=== PATIENT | female | born 1950 | race Caucasian/White ===

== ENCOUNTER 2018-03-20 10:49 | Outpatient (CLI) | payer MEDICARE, BC ==
[2018-03-20 11:38] LABS: MEAN CORPUSCULAR HEMOGLOBIN 33.3 pg (27.0-31.0); MEAN CORPUSCULAR HGB CONC 34.9 g/dL (32.0-36.0); MEAN CORPUSCULAR VOLUME 95.4 fL (81.0-99.0); MEAN PLATELET VOLUME 7.9 fL (7.9-10.8); RED BLOOD COUNT 3.89 10^6/uL (4.20-5.40); RED CELL DISTRIBUTION WIDTH 12.2 % (12.0-15.0); WHITE BLOOD COUNT 5.8 x10^3/uL (4.8-10.8)
[2018-03-20 11:46] LABS: CALCIUM 9.3 mg/dL (8.5-10.3); CREATININE 0.7 mg/dL (0.4-1.0)
--- NOTE | 2018-03-20 16:13 | CT Report ---
Reason: SPINAL STENOSIS OF LUMBAR REGION W/O NEUROGENIC CL Procedure Date: 03/20/2018 Accession Number: [id number] / [id number] Procedure: CT - Lumbar Spine W/O CPT Code: FULL RESULT: EXAM: CT LUMBAR SPINE WITHOUT CONTRAST EXAM DATE: 03/20/2018 11:26 AM. CLINICAL HISTORY: Spinal stenosis of lumbar region without neurogenic CL. COMPARISONS: Lumbar spine w/out contrast 05/01/2016 5:10 PM. TECHNIQUE: Thin-section axial images were acquired of the lumbar spine from T12 to S1 without contrast. Post-processing: Coronal and sagittal reformats. Other: None. In accordance with CT protocol optimization, one or more of the following dose reduction techniques were utilized for this exam: automated exposure control, adjustment of mA and/or KV based on patient size, or use of iterative reconstructive technique. FINDINGS: Alignment: 5.9 degrees of levoscoliosis between T12-L1 and L4-L5. No anterolisthesis, no retrolisthesis is seen. Bones: Five [id number] lumbar vertebral bodies are present. No fractures or bone lesions. Disk Levels/Facets: T12-L1: Unremarkable. L1-L2: Unremarkable. L2-L3: Disk space height loss, marginal arthrosis is present. Prominent facets and ligamentum flavum. Moderate central stenosis. Moderate left foraminal stenosis. Right neural foramina is normal. L3-L4: Mild broad-based bulge, prominent facets. No stenosis. L4-L5: Mild broad-based bulge and prominent facets. No stenosis. L5-S1: Unremarkable. Musculature: Mild fatty atrophy of the multifidus musculature. Other: The visualized retroperitoneum is unremarkable. IMPRESSION: 1. 5.9 degrees levoscoliosis between T12-L1 and L4-L5. No listhesis. Mild fatty atrophy of the multifidus muscle is seen. 2. L2-L3 shows disk space height loss and marginal arthrosis. Moderate central stenosis. Moderate left foraminal stenosis. Right neural foramina is normal. 3. L3-L4 shows a mild broad-based bulge, no stenosis. 4. L4-L5 shows a mild broad-based bulge, no stenosis. 5. L5-S1 is normal. RADIA
== END 2018-03-20 10:50 | disposition home or self-care (01) ==
LOC: DI 10:49
PROVIDERS: ATTEND Neurological Surgery
DX: Z01.818 Encounter for other preprocedural examination (principal); M48.061 Spinal stenosis, lumbar region without neurogenic claudication; M41.85 Other forms of scoliosis, thoracolumbar region
CPT/HCPCS: 36415; 72131; 80048; 85027; 93005

== ENCOUNTER 2018-03-22 12:10 | Outpatient (CLI) | payer MEDICARE, BC ==
--- NOTE | 2018-03-23 11:58 | MRI Report ---
Reason: PREOPERATIVE TESTING, SPINAL STENOSIS Procedure Date: 03/22/2018 Accession Number: [id number] / [id number] Procedure: MRI - Lumbar Spine W/O CPT Code: FULL RESULT: EXAM: MRI LUMBAR SPINE WITHOUT CONTRAST EXAM DATE: 03/22/2018 01:06 PM. CLINICAL HISTORY: Spinal stenosis. COMPARISON: Lumbar spine CT from 03/20/2018 in the lumbar spine MRI from 05/01/2016. TECHNIQUE: Multiplanar, multisequence T1-weighted and fluid-sensitive sequences of the lumbar spine from T10 to S1 without contrast. Other: None. FINDINGS: Spinal Canal: The conus terminates at L1. The conus medullaris and cauda equina are unremarkable. Alignment: Retrolisthesis at L2-L3 is stable. Bone Marrow: Five [id number]-abe-plnalno lumbar vertebral bodies are confirmed on the CT. Type I and II Modic endplate changes are again noted at L2-L3, stable. Small chronic Schmorl's nodes at T12-L1 and L1-L2 are also stable. Disk Levels/Facets: T10-T11: On sagittal images, the spinal canal and foramina are patent. T11-T12: On sagittal images, the spinal canal and foramina are patent. T12-L1: On sagittal images, the spinal canal and foramina are patent. L1-L2: Bilateral foraminal protrusions are present resulting in moderate right and mild left foraminal narrowing. The spinal canal is patent. These findings are stable. L2-L3: Disk bulge with bilateral facet arthropathy and ligamentum flavum infolding are present. This results in moderate right and mild left foraminal narrowing. These findings are stable. L3-L4: A disk bulge with ligamentum flavum infolding result in mild spinal canal stenosis. There is mild bilateral foraminal narrowing. These findings are stable. L4-L5: A disk bulge with facet arthropathy and ligamentum flavum infolding result in mild spinal canal stenosis. There is mild bilateral foraminal narrowing. These findings are stable. L5-S1: Bilateral facet arthropathy is present without spinal canal or foraminal stenosis. Musculature: There is moderate diffuse fatty atrophy of the posterior paraspinal muscles. New mild edema is noted in the posterior paraspinal muscles bilaterally at L4 and L5, suspicious for muscular strain. No drainable fluid collection is seen. Other: The partially visualized retroperitoneum is unremarkable. IMPRESSION: 1. Normal conus medullaris and cauda equina. 2. Stable type I and type II Modic endplate changes at L2-L3. 3. Multilevel degenerative changes are again noted without worsening spinal canal or foraminal stenosis compared to the lumbar spine MRI from 05/01/2016. Comment: The following findings are so common in adults without low back pain that while we report their presence, they must be interpreted with caution and in the context of the clinical situation. (Reference Neliak et al, Spine 2001) Prevalence of findings in patients without low back pain: Disk degeneration (any evidence): 92% Disk desiccation/T2 signal loss: 83% Disk height loss: 56% Disk bulge: 64% Disk protrusion: 32% Annular tear/high intensity zone: 38% RADIA
== END 2018-03-22 12:11 | disposition home or self-care (01) ==
LOC: DI 12:10
PROVIDERS: ATTEND Neurological Surgery
DX: Z01.818 Encounter for other preprocedural examination (principal); M48.061 Spinal stenosis, lumbar region without neurogenic claudication; M51.26 Other intervertebral disc displacement, lumbar region
CPT/HCPCS: 72148

== ENCOUNTER 2018-07-23 07:17 | Emergency (ER) | payer MEDICARE, BC ==
[2018-07-23] MEDS ORDERED: SODIUM CHLORIDE 0.9% 1,000 ML IV ONE (07:46)
[2018-07-23] MEDS ORDERED: DEXAMETHASONE 10 MG/ML VIAL IVP STA (07:46)
[2018-07-23] MEDS ORDERED: PROCHLORPERAZINE 10 MG/2 ML VIAL IVP STA (07:46)
[2018-07-23] MEDS ORDERED: diphenhydrAMINE INJ 50 MG/ML VIAL IVP STA (07:46)
[2018-07-23] MEDS ORDERED: KETOROLAC 30 MG/ML VIAL IVP STA (07:46)
--- NOTE | 2018-07-23 07:49 | ED Physician Documentation ---
PD HPI HEADACHE - Stated complaint Stated Complaint: MIGRAINE - Chief complaint Chief Complaint: Neuro - History obtained from History obtained from: Patient, Family - History of Present Illness Timing - onset: How many days ago (2) Timing - onset during: Rest Timing - duration: Days (2) Timing - details: Gradual onset, Still present, Waxing and waning Location: Front, Right Quality: Throbbing Associated symptoms: Nausea. No: Fever, Stiff neck, Vomiting, Weakness, Numbness, Syncope, Seizure, Eye pain Improved by: Rest, Dark room, Quiet Worsened by: Light, Noise, Moving Contributing factors: No: Anticoagulated, Recent illness Similar symptoms before: Diagnosis (migraine) Recently seen: Not recently seen - Additional information Additional information: 67-year-old female with a history of migraines since adulthood has developed a headache 2 days ago this is been persistent she has had some nausea associated with that she has not had any vomiting. She has persistence of the headache and the pain is severe mostly in the right buddhism and she usually has been able to take care of these headaches with Imitrex which she has been out of. Review of Systems Constitutional: denies: Fever Eyes: denies: Decreased vision Ears: denies: Ear pain Nose: denies: Rhinorrhea / runny nose, Congestion Throat: denies: Sore throat Cardiac: denies: Chest pain / pressure, Palpitations Respiratory: denies: Dyspnea, Cough GI: reports: Nausea. denies: Abdominal Pain, Vomiting : denies: Dysuria, Frequency Skin: denies: Rash Musculoskeletal: denies: Neck pain, Back pain, Extremity pain Neurologic: reports: Headache. denies: Generalized weakness, Focal weakness, Numbness, Head injury, LOC PD PAST MEDICAL HISTORY - Past Medical History Neuro: Migraines Musculoskeletal: Chronic back pain - Past Surgical History Ortho: Spine surgery - Present Medications Home Medications: Ambulatory Orders Medication Instructions Recorded Confirmed Levothyroxine Sodium [Levoxyl] 88 mcg PO 07/23/18 Sumatriptan Succinate [Imitrex] 100 mg PO ONCE PRN #15 tablet 07/23/18 Tolterodine [Detrol LA] 2 mg PO ONCE 07/23/18 07/23/18 - Allergies Allergies/Adverse Reactions: Allergies Allergy/AdvReac Type Severity Reaction Status Date / Time No Known Drug Allergies Allergy Verified 07/23/18 07:24 - Social History Does the pt smoke?: No Smoking Status: Never smoker Does the pt drink ETOH?: No Does the pt have substance abuse?: No - Immunizations Immunizations are current?: Yes PD ED PE NORMAL - Vitals Vital signs reviewed: Yes (hypertensive) - General General: Alert and oriented X 3, Well developed/nourished, Other (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 ) - HEENT HEENT: Atraumatic, PERRL, EOMI, Ears normal, Moist mucous membranes, Pharynx benign - Neck Neck: Supple, no meningeal sign, No bony TTP, Other (There is mild tenderness at the insertion of the trapezius to the occiput bilaterally ) - Cardiac Cardiac: RRR, No murmur - Respiratory Respiratory: No respiratory distress, Clear bilaterally - Abdomen Abdomen: Soft, Non tender - Back Back: No CVA TTP, No spinal TTP - Derm Derm: Normal color, Warm and dry, No rash - Extremities Extremities: No deformity, No edema - Neuro Neuro: Alert and oriented X 3, 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, No motor deficit, No sensory deficit, Normal speech Eye Opening: Spontaneous Motor: Obeys Commands Verbal: Oriented GCS Score: 15 - Psych Psych: Normal mood Results - Vitals Vitals: Vital Signs - 24 hr 07/23/18 07/23/18 07:21 08:30 Temperature 36.2 C L Heart Rate 72 76 Respiratory 16 16 Rate Blood Pressure 140/85 H 126/68 O2 Saturation 98 96 Oxygen O2 Source Room air PD MEDICAL DECISION MAKING - ED course Complexity details: reviewed results, re-evaluated patient, considered differential, d/w patient, d/w family ED course: 67-year-old female with a migraine headache for the past week is administered a cocktail of Compazine Decadron Toradol Benadryl and saline and has minimal improvement with this and she is sequentially administered Dilaudid which does take the edge off the headache and she has further improvement with use of Imitrex 6 mg subcutaneously. Her prescription for Imitrex 100 mg orally is refilled. Departure - Departure Disposition: 01 Home, Self Care Clinical Impression: Migraine Qualifiers: Migraine type: without aura Status migrainosus presence: without status migrainosus Intractability: not intractable Qualified Code(s): G43.009 - Migraine without aura, not intractable, without status migrainosus Instructions: ED Headache Migraine Follow-Up: Dion Oswald MD [Primary Care Provider] - Prescriptions: Sumatriptan Succinate [Imitrex] 100 mg PO ONCE PRN #15 tablet PRN Reason: Migraine
[2018-07-23] MEDS ORDERED: HYDROmorphone 1 MG/ML CARPUJECT IVP STA (08:20)
[2018-07-23] MEDS ORDERED: SUMAtriptan 6 MG/0.5 ML VIAL SUBQ STA (09:12)
[2018-07-23 10:05] VITALS: BP 124/66
== END 2018-07-23 10:05 | disposition home or self-care (01) ==
LOC: ED 07:17
DX: G43.009 Migraine without aura, not intractable, without status migrainosus (principal)
CPT/HCPCS: 96372; 96374; 96375; 99284; J1170; J1200

== ENCOUNTER 2019-08-18 22:06 | Emergency (ER) | payer MEDICARE, BC ==
[2019-08-18 22:24] VITALS: BP 100/57
== END 2019-08-18 22:49 | disposition left against medical advice (07) ==
LOC: ED 22:06
DX: Z53.21 Procedure and treatment not carried out due to patient leaving prior to being seen by health care provider (principal)

== ENCOUNTER 2020-05-13 12:45 | Day surgery (SDC) | payer MEDICARE, BC ==
[2020-05-13] MEDS ORDERED: fentaNYL 250 MCG/5 ML VIAL IVP ONE (12:46)
[2020-05-13] MEDS ORDERED: MIDAZOLAM 2 MG/2 ML VIAL IVP ONE (12:46)
[2020-05-13] MEDS ORDERED: LACTATED RINGERS 1,000 ML IV ONE ×2 (13:03→14:45)
[2020-05-13 15:06] VITALS: BP 136/66
== END 2020-05-13 12:46 | disposition home or self-care (01) ==
LOC: SDS 12:45
PROVIDERS: ATTEND Surgery
PROC: 0DBN8ZZ Excision of Sigmoid Colon, Via Natural or Artificial Opening Endoscopic (ICD-10-PCS; principal; 2020-05-13 14:00)
DX: Z12.11 Encounter for screening for malignant neoplasm of colon (principal); D12.5 Benign neoplasm of sigmoid colon; K57.30 Diverticulosis of large intestine without perforation or abscess without bleeding; Z80.0 Family history of malignant neoplasm of digestive organs
CPT/HCPCS: 45380; J3010; J7120

== ENCOUNTER 2021-09-08 13:51 | Outpatient (CLI) | payer MEDICARE, BC | END 2021-09-08 13:52 | disposition home or self-care (01) | LOC: RT 13:51 | PROVIDERS: ATTEND Internal Medicine Cardiovascular Disease | DX: R06.09 Other forms of dyspnea (principal); R07.89 Other chest pain; R53.83 Other fatigue; I20.9 Angina pectoris, unspecified | CPT/HCPCS: 93005 ==

== ENCOUNTER 2021-09-29 07:44 | Outpatient (CLI) | payer MEDICARE, BC ==
--- NOTE | 2021-09-29 08:44 | CARDIAC PROCEDURE NOTE ---
Stress Test Report Service Date: 09/29/21 Service Time: 08:00 Ordering Provider: Bob Russo Indication for Test: Assess for cardiac ischemia as a contributor to exertional fatigue. Significant Medical History: Juana is referred for a Dale treadmill test today to assess her exercise response as part of a work-up for unexplained exertional fatigue, evolving over the past year or so. She describes it as gradual onset of needing to stop and rest during moderate to vigorous activities at a progressively lower threshold. She is still active around her home and continues to climb her staircase 3-4 times consecutively in order to try to remain in shape. She needs to rest and recover afterward. She does experience some chest tightness in the mornings that improves with a hot shower and may occur randomly at other times, though n ot with exertion. With her exertional fatigue she describes increased work of breathing, though is she is not particularly aware of breathlessness and she denies nocturnal dyspnea as well as diaphoresis (except as part of nocturnal hot flashes, see below). She mentions that both of her parents had hypertension and as of yet she is not aware of having this diagnosis, though she has not assessed blood pressure very much recently. She has undergone recent screening lab work, including recheck of TSH, and understands these results to be within normal limits. She has not been told by her that she snores, though occasionally he mentions the concern that he does not hear her breathing during sleep. She has some sleep disruption due to nocturnal hot flashes and feels that her sleep quality is suboptimal. Cardiac Risk Factors: Positive for family history of heart disease (father with CABG, mother with unspecified issues including pacemaker, both hypertensive), negative for hypertension, hyperlipidemia, diabetes and tobacco smoking ever. Type of Stress Test: Exercise Treadmill Test (ETT) Procedure: -Exercise Treadmill Test- After signing informed consent, the patient performed treadmill exercise using a Dale protocol. The patient exercised for 4 minutes 37 seconds and achieved a peak heart rate of 152 (102 percent predicted maximum heart rate for age), and an estimated workload of 6.6 METS. The test was terminated due to shortness of breath and fatigue. Resting heart rate: 69 Peak heart rate: 152 Normal response to exercise. Resting BP: 165/91 Peak BP: 220/79 Hypertensive at rest with physiologic response of systolic and diastolic BPs to exercise. Rhythm during exercise: Sinus rhythm throughout. Symptoms: No chest tightness reported. EKG at rest showed normal sinus rhythm, normal in all aspects. EKG at peak stress showed J-point depression with upsloping ST segements, NOT meeting diagnostic criteria for ischemia. In Recovery heart rate rapidly and normally returned toward baseline level, BP decreased more slowly, was still elevated (147/95) at 8:35. No imaging was ordered with this stress test. ISilvestre MD, was present throughout this treadmill stress study and supervised it in its entirety. Summary: 1) Exercise tolerance moderately reduced for age and gender, as evidenced by JAY of 17.3%. 2) Normal resting EKG. 3) Adequate level of exercise was achieved on this treadmill stress test. 4) Hypertensive at rest with physiologic BP response to exercise. 5) No ischemic changes by EKG criteria were seen at peak stress. 6) No imaging was ordered with this test. CONCLUSIONS: 1) Reduced exertional tolerance for age, with limiting dyspnea and fatigue. 2) No evidence of inducible ischemia by symptoms or EKG response. 3) Patient is encouraged to obtain an arm BP cuff and perform self-monitoring at different times during the day, then review results with her care team. 4) Her sleep quality is reduced and discussion of further evaluation may be worthwhile.
== END 2021-09-29 07:45 | disposition home or self-care (01) ==
LOC: DI 07:44
PROVIDERS: ATTEND Internal Medicine Cardiovascular Disease
DX: R06.09 Other forms of dyspnea (principal); R53.83 Other fatigue; R03.0 Elevated blood-pressure reading, without diagnosis of hypertension; Z82.49 Family history of ischemic heart disease and other diseases of the circulatory system
CPT/HCPCS: 93016; 93017; 93018

== ENCOUNTER 2021-11-02 10:36 | Outpatient (CLI) | payer MEDICARE, BC ==
--- NOTE | 2021-11-11 09:48 | Mammography Report ---
BILATERAL DIGITAL SCREENING MAMMOGRAM 3D/2D WITH EXAGGERATED CC: 11/02/2021 CLINICAL: Routine screening. Personal history of left breast cancer. Comparison is made to exams dated: 05/24/2020 mammogram, 11/29/2017 mammogram, and 12/11/2018 mammogra m - [facility]. There are scattered fibroglandular elements in both breasts. There are benign post operative findings in the left breast. No significant masses, calcifications, or other findings are seen in either breast. There has been no significant interval change. IMPRESSION: BENIGN There is no mammographic evidence of malignancy. A 1 year screening mammogram is recommended. This exam was interpreted at Station ID: [id number]. NOTE: For mammograms, a report in lay terms will be sent to the patient. Approximately 15% of breast malignancies will not be visualized mammographically. In the management of a palpable breast mass, a negative mammogram must not discourage biopsy of a clinically suspicious lesion. Electronically Signed By: Zeynep richards/laney:11/10/2021 08:22:40 ACR BI-RADS Category 2: Benign Finding(s) 3342F B -Scattered fibroglandular 2 Mammogram [id number] 1 year screening B
== END 2021-11-02 10:37 | disposition home or self-care (01) ==
LOC: DI.S 10:36
DX: Z12.31 Encounter for screening mammogram for malignant neoplasm of breast (principal); Z85.3 Personal history of malignant neoplasm of breast

== ENCOUNTER 2022-01-17 12:11 | Outpatient (CLI) | payer MEDICARE, BC | END 2022-01-17 12:12 | disposition home or self-care (01) | LOC: DI 12:11 | PROVIDERS: ATTEND Internal Medicine Cardiovascular Disease | DX: R06.00 Dyspnea, unspecified (principal); R53.83 Other fatigue | CPT/HCPCS: 93306 ==